=== PATIENT | female | born 1990 | race Caucasian/White ===

== ENCOUNTER 2017-08-14 23:44 | Emergency (ER) | payer BC, OTHER ==
[2017-08-14 23:58] VITALS: BP 136/82
--- NOTE | 2017-08-15 00:35 | ER Document Report ---
HPI - HPI Pain Level: 4 Notes: Patient is a 27-year-old female who presents the ED complaining of a vesicular rash to the left dorsal arm 1 day. Patient states that her arm does ache in that she is sensitive to light touch because of the pain. Patient states the pain feels sharp. She has been keeping it covered and a couple of the vesicular lesions did rupture already. She has not noticed any purulent drainage or abscess. Patient states that when the vesicles rupture it is a clear fluid. Patient denies any recent illness, travel, sick contacts. She is still eating and drinking without any difficulties. She denies any significant past medical history aside from chickenpox as a child. No other drug allergies. Patient denies any IV drug use. Patient does admit to smoking cigarettes. Denies any headache, fever, neck pain, URI, sore throat, chest pain , palpitations, syncope, cough, shortness of breath, wheeze, dyspnea, abdominal pain, nausea/vomiting/diarrhea, urinary retention, dysuria, hematuria. Pt denies any exposure to new chemicals, soaps, detergents, foods. Denies insect bites or exposure to poisonous plants. - ROS Notes: REVIEW OF SYSTEMS: CONSTITUTIONAL : Denies fever, chills, or sweats. Denies recent illness. EENT: Denies eye, ear, throat, or mouth pain or symptoms. Denies nasal or sinus congestion or discharge. Denies throat, tongue, or mouth swelling or difficulty swallowing. CARDIOVASCULAR: Denies chest pain. Denies palpitations or racing or irregular heart beat. Denies ankle edema. RESPIRATORY: Denies cough, cold, or chest congestion. Denies shortness of breath, difficulty breathing, or wheezing. GASTROINTESTINAL: Denies abdominal pain or distention. Denies nausea, vomiting , or diarrhea. Denies blood in vomitus, stools, or per rectum. Denies black, tarry stools. Denies constipation. GENITOURINARY: Denies difficulty urinating, painful urination, burning, frequency, blood in urine, or discharge. MUSCULOSKELETAL: Denies back or neck pain or stiffness. Denies joint pain or swelling. SKIN: see hpi NEUROLOGICAL: Denies confusion or altered mental status. Denies passing out or loss of consciousness. Denies dizziness or lightheadedness. Denies headache. Denies weakness or paralysis or loss of use of either side. Denies problems with gait or speech. Denies sensory loss, numbness, or tingling. ALL OTHER SYSTEMS REVIEWED AND NEGATIVE. Dictation was performed using [email or web address] voice recognition software - DERM Skin Color: Normal Past Medical History - Social History Smoking Status: Current Every Day Smoker Family History: Reviewed & Not Pertinent Patient has suicidal ideation: No Patient has homicidal ideation: No Renal/ Medical History: Denies: Hx Peritoneal Dialysis Vertical Provider Document - CONSTITUTIONAL Agree With Documented VS: Yes Notes: PHYSICAL EXAMINATION: GENERAL: Well-appearing, well-nourished and in no acute distress. A&Ox4 HEAD: Atraumatic, normocephalic. EYES: Pupils equal round and reactive to light, extraocular movements intact, sclera anicteric, conjunctiva are normal. ENT: Nares patent and without discharge. oropharynx clear without exudates. No tonsilar hypertrophy or erythema. Moist mucous membranes. No sinus tenderness. NECK: Normal range of motion, supple without lymphadenopathy LUNGS: Breath sounds clear to auscultation bilaterally and equal. No wheezes rales or rhonchi. HEART: Regular rate and rhythm without murmurs, rubs, gallops. Musculoskeletal: FROM to passive/active. Strength 5+/5. Extremities: No cyanosis, clubbing, or edema b/l. Peripheral pulses 2+. Capillary refill less than 3 seconds. NEUROLOGICAL: Cranial nerves grossly intact. Normal speech, normal gait. Normal sensory, motor exams PSYCH: Normal mood, normal affect. SKIN: Lt dorsal forearm: grouped vesicular lesions on erythematous base. + tenderness to light touch. No induration, abscess, or streaks. Unilateral. - INFECTION CONTROL TRAVEL OUTSIDE OF THE [place] IN LAST 30 DAYS: No - RESPIRATORY O2 Sat by Pulse Oximetry: 99 Course - Re-evaluation Re-evalutation: 08/15/17 00:37 Patient is an afebrile, well-hydrated, 27-year-old female who presents to the ED with a vesicular rash, suspect possible shingles. Vitals are stable. PE is otherwise unremarkable at this time. I will cover her with Valtrex to take as directed. Conservative measures for symptoms. Patient to monitor for any acute changes in her symptoms and seek medical attention if so. Recheck with PCM this week. Return to the ED with any worsening/concerning symptoms otherwise as reviewed in discharge. Patient is in agreement. - Vital Signs Vital signs: Temp Pulse Resp BP Pulse Ox 97.6 F 87 12 136/82 H 99 08/14/17 23:55 08/14/17 23:55 08/14/17 23:55 08/14/17 23:55 08/14/17 23:55 Discharge - Discharge Clinical Impression: Herpes zoster Qualifiers: Herpes zoster complications: without complications Qualified Code(s): B02.9 - Zoster without complications Condition: Stable Disposition: HOME, SELF-CARE Instructions: Shingles (OM), Family Physicians / Practices Additional Instructions: Take medications as directed Tylenol/ibuprofen as needed Keep the area covered until healed Apply bacitracin for any open wounds as directed Recheck/establish with a PCM this week Return to the ED with any worsening symptoms and/or development of fever, headache, chest pain, palpitations, syncope, shortness of breath, trouble breathing, abdominal pain, n/v/d, blood in stool/urine, loss of control of bowel /bladder, abscess, purulent discharge, red streaks, or other worsening symptoms that are concerning to you. Prescriptions: Valacyclovir HCl [Valacyclovir] 1,000 mg PO TID #21 tablet Forms: Elevated Blood Pressure Referrals: [facility] [Provider Group] - Follow up as needed [facility] [Provider Group] - Follow up as needed
== END 2017-08-15 01:00 | disposition home or self-care (01) ==
LOC: ER 23:44
DX: B02.9 Zoster without complications (principal); F17.200 Nicotine dependence, unspecified, uncomplicated
CPT/HCPCS: 99282

== ENCOUNTER 2017-08-22 20:33 | Emergency (ER) | payer SELFPAY ==
[2017-08-22 21:03] VITALS: BP 151/81
== END 2017-08-23 00:28 | disposition left against medical advice (07) ==
LOC: ER 20:33
DX: Z53.21 Procedure and treatment not carried out due to patient leaving prior to being seen by health care provider (principal)